=== PATIENT | male | born 1955 | race Caucasian/White ===

== ENCOUNTER 2016-11-16 05:03 | Emergency (ER) | payer BC ==
[~2016-11-16] VITALS: Ht 177.8 cm; Wt 87.1 kg
[~2016-11-16 05:03] MED LIST: ATORVASTATIN CA20 M1 PO; BACTRIM DS 8001 TAB PO; BIAXIN500 MG PO; CETIRIZINE HCL10 MG PO; COMBIVENT INH14.7 GM IN; DUONEB 3 MG/3 ML3 ML IH; FENOFIBRATE160 MG PO; FLOMAX 0.4MG C0.4 MG PO; HYDROCHLOROTH12.5 M2 PO; LORATADINE1 POW PO; METFORMIN ER500 MG PO; MONTELUKAST SOD10 MG PO; MULTIVITAMIN1 TA1 PO; OMEPRAZOLE40 MG PO; OMNICEF 300 MG300 MG PO; PAROXETINE20 MG PO; PERCOCET1 TA1 PO; PREDNISONE 20MG20 MG PO; PRILOSEC40 MG PO; RHINOCORT NS; SERTRALINE 100100 MG PO; SIMVASTATIN40 MG PO; TESSALON PERLE100 MG PO; VITAMIN D1000 IU PO; ZITHROMAX Z-PA250 M1 PO; [UNRECOGNIZED DRUG - OTHER] NS
[2016-11-16] MEDS ORDERED: POTASSIUM CITR15 MEQ PO (05:16)
--- NOTE | 2016-11-16 05:17 | Emergency Room Report ---
History of Present Illness Time Seen by MD Warren Presenting Problem in Triage Pt arrived:Walked Presenting Problem:C/O PAIN IN LEFT ELBOW/ARM WITH TINGLING. 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 NO ARM DRIFT. 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 N Clinical Suspician of Infection? N Mental Status: 1 - Regular (Normal Baseline) Sepsis Risk:Low Sepsis Risk Have you (or family members/close friends) recently traveled outside the [place]? N If Yes, where/when: Have you had exposure to infectious disease within the past month? N TB? Other? Specify: Comment The patient complains of pain in the back of his LEFT elbow, tingling of his LEFT fingers. He says that he awakened this morning about 5 AM to go to work. He noticed when he began moving his LEFT arm that with range of motion he has pain in his LEFT elbow in the back just proximal to the olecranon. He has tenderness in that area. When he gets a certain degree of flexion he gets a severe pain. Very little pain with elbow at rest, the severe pain is with movement of elbow. He has some tingling in his index, middle, and ring fingers. No injury or trauma recalled. He mowed the yard yesterday using a self-propelled mower. 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 He did not work yesterday. No medication taken prior to arrival. No chest pain, shortness of breath, headache, neck pain. He came to the emergency department because he was concerned about the degree of pain. ALLERGIES Coded Allergies: gatifloxacin (From TEQUIN) (11/16/16) Home Medications Reported Medications Fenofibrate (Fenofibrate 160MG (GEQ: Lofibra)) 145 MG PO DAILY Hydrochlorothiazide 12.5 MG PO DAILY Multiple Vitamin (Multivitamin) 1 TAB PO DAILY Albuterol/Ipratropiu (Duoneb) 3 ML IH QID Albuterol-Ipratropium (Combivent Inhaler) 2 PUFFS IN QIDP PRN BREATHING Omeprazole (Omeprazole 40MG) 40 MG PO DAILYP PRN STOMACH Atorvastatin Calcium 20 MG PO NIGHTLY #90 Montelukast Sodium 10 MG PO NIGHTLY #90 CHOLECALCIFEROL (VITAMIN D3) (Vitamin D3) 1,000 IUNITS PO DAILY Sertraline Hydrochloride (Sertraline 100MG) 100 MG PO DAILY #30 METFORMIN HCL (Metformin HCl ER) 500 MG PO DAILY #90 Potassium Citrate (Potassium Citrate ER) 15 MEQ PO BID #180 History Medical History General CAD? No Angina: No [place]: No Hypertension? Yes Hyperlipidemia? Yes CHF? No DVT? No PE? No COPD? No Asthma? Yes Anemia? No GERD? Yes Gastric ulcers? No GI Bleed? No Hernia? Yes Thyroid Problems? No Hypothyroidism? No CVA? No Seizures? No Diabetes? Yes Insulin Dependent: No Insulin Pump: No Home FSBS? No Renal Insuffiency? No End Stage Renal Disease? No UTI? No Stones? No BPH? No GB Disease: Yes Nephritic Syndrome? No Asplenia? No Hepatitis? No Sickle Cell Disease? No Arthritis? No Migraines? No Cataracts? No Glaucoma? No MRSA? No HIV? No TB? No Anxiety? No Depression? No Cancer? No Immunization Hx DT/Tetanus 1-4 Years Ago Flu LAST YEAR Pneumonia 1-4 YRS Surgical Hx Previous Surgery?Y Hernia Repair SINUS LEFT HEEL SPUR GALL BLADDER Family History Family Hx Diabetes No CAD Yes Hypertension No Hyperlipidemia No Cancer No TB No Social History Smoking Hx Smoker: Never Smoker Tobacco: No Alcohol Alcohol: No Review of Systems All Other Systems Reviewed and Negative Respiratory denies shortness of breath Cardiovascular denies chest pain Gastrointestinal denies nausea, denies vomiting Musculoskeletal joint pain Psychiatric/Neurological denies headache, tingling, denies weakness Physical Exam Vital Signs Vital Signs Date Time Temp Pulse Resp B/P Pulse O2 O2 Flow FiO2 Ox Delivery Rate 11/16 0623 97.4 70 20 123/77 95 11/16 0622 97.4 70 20 123/77 95 11/16 0506 97.4 62 20 132/88 95 General Appearance normal appearance Respiratory Status No: respiratory distress. Cardiovascular regular rate/rhythm, normal peripheral pulses Extremities LEFT elbow shows tenderness posteriorly just proximal to the olecranon over the area of the triceps tendon. no visible or palpable defect of the tendon. No overlying erythema. No edema. No joint effusion., no significant tenderness over the epicondyles. No palpable crepitance with range of motion., his more severe pain is reproduced when he flexes to about 135 degrees. he also gets severe pain when extending the elbow against resistance. Only mild pain produced when flexing against resistance., he has only slight pain produced by flexion or extension of the wrist, or movement of the shoulder. His severe pain is only produced by range of motion of the elbow. , normal radial pulse. Normal capillary refill. Intact sensation of all digits. Normal strength of the muscle groups in his hand and forearm. Neurologic alert, no motor/sensory deficits Medical Decision Making LABS/Meds/Orders Pt receiving controlled substance in ED? Yes Cedrick was queried for this patient? Yes Comment [id number] 1 rx for lortab 7.5mg on 12/01/15. Results/Orders Current Medication Orders Sig/Sola Start time Last Medication Dose Route Stop Time Status Admin Ibuprofen 800 MG ONCE ONE 11/16 614 DC 11/16 PO 11/17 615 0610 Ibuprofen 0 .STK-MED ONE 11/16 605 DC PO Orders Procedure Date/time Status STABILIZE JOINT 11/16 614 Active GEN NSG/PT REQ (NOT FOR MEDS!) 11/16 601 Active STABILIZE JOINT 11/16 600 Active XRAY/CT/US XRAY/CT/US XRAY elbow Comment X-ray interpreted by Liban Mederos MD. Negative for fracture, dislocation, or foreign body. Progress - The patient's symptoms are most suggestive of a triceps tendinitis, although his tingling raises the possibility of a nerve impingement as well. I advise follow- up with orthopedics. Initial treatment with rest, ice, anti-inflammatories. The patient says his employer does not have any other duty that he can do and he will not be able to drive a forklift with his LEFT arm in a sling, therefore given a work excuse for 2 days. He also request an RX for pain medication. Departure Departure Disposition DC Home or Self Care(routine) Clinical Impression Primary Impression: Tendinitis of left triceps Condition STABLE Referrals Jesi BLAIR,Iqra Arora (Family) Patient Instructions DI for Elbow Pain, DI for Tendinitis, How To Perform RICE ( Rest, Ice, Compress, Elevate) Additional Instructions Off work 11/16/16 through 11/18/16. Sling for 3 days. Ice 20 minutes every 2-4 hours while awake. Return to the emergency department if worsening numbness or if weakness of hand or arm. Follow-up with orthopedics, Dr. Last. Call today to make an appointment. Prescriptions Current Visit Scripts Ibuprofen (Ibuprofen 800MG) 800 MG PO Q8 #15 TAB HYDROCODONE/ACETAMINOPHEN ([place] 5-325 Tablet) 1 TAB PO Q6HP PRN pain #8 TAB ED Critical Care Critical Care No at 1000
[2016-11-16] MEDS ORDERED: IBUPROFEN800 MG PO (06:05)
[2016-11-16] MEDS ORDERED: NORCO 325 MG-51 TAB PO (06:06)
[2016-11-16 06:23] VITALS: BP 123/77
--- NOTE | 2016-11-16 07:22 | RADIOLOGY REPORT PS360 ---
ELBOW-LT-3 VIEWS COMPARISON: None HISTORY: Left elbow pain, no injury TECHNIQUE: AP lateral and oblique views FINDINGS: There is no fracture or dislocation. There may be mild diffuse soft tissue swelling of the elbow but I see no abnormal fat pad sign and there are no foreign bodies. IMPRESSION: Left elbow negative for fracture
--- OUTSIDE RECORDS SUMMARY | 2016-11-18 19:28 | External Medical Summary Rpt ---
Author Author , JARETH TEMPLETON Address Unknown Phone [email or web address] Purpose Continuity of Care Document - through 2016 Problems Code Diagnosis DOS Provider Status J40 BRONCHITIS, NOT SPECIFIED ACUTE OR CHRONIC J45.909 UNSPECIFIED ASTHMA, UNCOMPLICAT ED M77.8 OTHER ENTHESOPATH IES, NOT ELSEWHERE CLASSIFIED N20.0 CALCULUS OF KIDNEY N20.1 CALCULUS OF URETER R31.9 HEMATURIA, UNSPECIFIED
--- OUTSIDE RECORDS SUMMARY | 2016-11-18 19:28 | External Medical Summary Rpt ---
Demographics Preferred Language Moldovan Marital Status Unknown Bahai Affiliation Unknown Race Unknown Ethnic Group Unknown Author Author , JARETH TEMPLETON Address Unknown Phone Immunization Unable to retrieve immunization data due to connection failure with Immunization Registry. Please try again later.
--- OUTSIDE RECORDS SUMMARY | 2016-11-18 19:28 | External Medical Summary Rpt ---
Author Author , JARETH TEMPLETON Address Unknown Phone [email or web address] Purpose Continuity of Care Document - through 2016 Problems Code Diagnosis DOS Provider Status J40 BRONCHITIS, NOT SPECIFIED ACUTE OR CHRONIC J45.909 UNSPECIFIED ASTHMA, UNCOMPLICAT ED M77.8 OTHER ENTHESOPATH IES, NOT ELSEWHERE CLASSIFIED N20.0 CALCULUS OF KIDNEY N20.1 CALCULUS OF URETER R31.9 HEMATURIA, UNSPECIFIED
--- OUTSIDE RECORDS SUMMARY | 2016-11-18 19:28 | External Medical Summary Rpt ---
Demographics Preferred Language Trinidadian Marital Status Unknown Temple Affiliation Unknown Race Unknown Ethnic Group Unknown Author Author , JARETH TEMPLETON Address Unknown Phone Immunization Unable to retrieve immunization data due to connection failure with Immunization Registry. Please try again later.
--- OUTSIDE RECORDS SUMMARY | 2016-11-18 19:28 | External Medical Summary Rpt ---
Author Author [employer] Organization [employer] Address Unknown Phone Unavailable Purpose Continuity of Care Document - through 2016
== END 2016-11-16 06:24 | disposition home or self-care (01) ==
LOC: ER 05:03
DX: M65.822 Other synovitis and tenosynovitis, left upper arm (principal); K21.9 Gastro-esophageal reflux disease without esophagitis; E11.9 Type 2 diabetes mellitus without complications; I10 Essential (primary) hypertension

== ENCOUNTER 2017-04-04 07:31 | Day surgery (SDC) | payer BC ==
[~2017-04-04 07:31] MED LIST changes: +IBUPROFEN800 MG PO; +NORCO 325 MG-51 TAB PO; +POTASSIUM CITR15 MEQ PO
--- NOTE | 2017-04-04 09:07 | Operative Note ---
Endoscopy Report Date: 04/04/17 Preoperative diagnosis: History of polyps Procedure Type of procedure: Total colonoscopy with numerous polypectomy by snare and biopsy forceps Indications: 61-year-old white male. He was sent for follow-up colonoscopy for surveillance due to history of polyps. He states that he had prior colonoscopy with polyps. Exact details of this are unknown as there was no record at this institution. Plan was made for colonoscopy. Was obtained and patient was taken to same-day surgery endoscopy procedure room. He is positioned in a lateral decubitus position. Adequate intravenous sedation was achieved with titration of 11 mg Versed and 200 g fentanyl for the duration of the procedure. Variable stiffness Olympus colonoscope was inserted via the anus and it was advanced to the cecum with some difficulty as he did have quite a floppy redundant sigmoid colon. Ultimately the colonoscope was advanced into the cecum and the ileocecal valve and appendiceal orifice were clearly identified. Colonoscope was slowly withdrawn and surveillance was carried out. At the hepatic flexure he had a small polyp removed with cold biopsy forceps. In the descending colon there was small polyp removed with cold biopsy forceps. In the sigmoid colon he had 2 small polyps one of which was removed with a cold snare and one with biopsy. In the mid sigmoid at approximately 50 cm from the anal verge there was a moderate adenomatous appearing polyp. Removed with hot snare. Distal sigmoid revealed a very small diminutive polyp removed with cold biopsy forceps. Retroflexion within the rectum revealed internal hemorrhoids which were nonbleeding. Colonoscope was withdrawn. Findings 1. Polyp Follow-Up Follow-Up: Follow-up on histopathology. Likely plan repeat colonoscopy 3-5 years pending the pathologic findings. at 0906
[2017-04-04 13:31] VITALS: BP 105/70
== END 2017-04-04 09:55 | disposition home or self-care (01) ==
LOC: SDC 07:31
PROVIDERS: Surgery
PROC: 0DBM8ZX Excision of Descending Colon, Via Natural or Artificial Opening Endoscopic, Diagnostic (ICD-10-PCS; 2017-04-04)
PROC: 0DBL8ZX Excision of Transverse Colon, Via Natural or Artificial Opening Endoscopic, Diagnostic (ICD-10-PCS; 2017-04-04)
PROC: 0DBN8ZX Excision of Sigmoid Colon, Via Natural or Artificial Opening Endoscopic, Diagnostic (ICD-10-PCS; 2017-04-04)
PROC: 0DBN8ZX Excision of Sigmoid Colon, Via Natural or Artificial Opening Endoscopic, Diagnostic (ICD-10-PCS; principal; 2017-04-04 08:00)
DX: Z09 Encounter for follow-up examination after completed treatment for conditions other than malignant neoplasm (principal); Z86.010 Personal history of colon polyps; K63.5 Polyp of colon